=== PATIENT | male | born 1940 | race Caucasian/White ===

== ENCOUNTER 2018-12-20 08:29 | Day surgery (SDC) | payer MEDICARE, OTHER ==
[2018-12-20] MEDS ORDERED: Propofol 200 MG/20 ML SDV ONE (09:25)
[2018-12-20] MEDS ORDERED: fentaNYL 100 MCG/2 ML SDV ONE (09:25)
[2018-12-20] MEDS ORDERED: Dextrose 5%-Lactated Ringers 1,000 ML IV SCH (09:45)
--- NOTE | 2018-12-21 14:50 | OR ---
DATE OF PROCEDURE: 12/20/2018 SURGEON: Sean Galaviz MD PREOPERATIVE DIAGNOSIS: Change in bowel habits. POSTOPERATIVE DIAGNOSES: Change in bowel habits associated with very extensive pandiverticulosis with scattered narrowing and tortuosity of sigmoid colon. OPERATIVE PROCEDURES: Flexible colonoscopy with: 1. Collection of stool for C and S (08918). 2. Random colorectal biopsies to rule out microscopic colitis (63401). ANESTHESIA: IV sedation. INDICATION FOR PROCEDURE: David is a 77-year-old, who is here for evaluation of some change in bowel habits. The patient had diverticulitis about three months ago, treated with antibiotics. He now has a pattern where he wakes up fairly constipated, moves his bowels, and then has frequent loose bowel movements for the remainder of the day. This is not associated with any systemic symptoms and only some [id number] abdominal discomfort. The plan is to proceed with a flexible colonoscopy with biopsies and/or polypectomy as indicated. In the event that we are dealing with some sort of chronic infectious component, we will obtain some stool for C and S, and if no obvious other pathology is seen accounting for the patient's symptoms, we will obtain random colorectal biopsies to rule out a microscopic colitis. Potential risks including bleeding and perforation were discussed, and the patient wishes to proceed. DETAILS OF PROCEDURE: The patient was taken to the operating room and placed in a left lateral decubitus position. IV sedation was administered, after which, the initial digital rectal exam was performed and was unremarkable. Colonoscope was then passed into the rectum with retroflexion revealing uncomplicated hemorrhoidal columns. The scope was eventually passed to the cecum. The patient had pandiverticulosis, but in the sigmoid colon, there was extremely dense diverticulosis. There was no overt diverticulitis throughout per se, although the mucosa in that area was diffusely very minimally reddened and edematous. The sigmoid colon had some areas of narrowing, but, at no point, enough that the scope could not be easily passed through that area of narrowing. Above the sigmoid colon, diverticulosis was persistent, but there was no additional tortuosity or narrowing in the remainder of the colon. Apart from the diverticular disease, there was no blood or bleeding, no polyps or signs of neoplasia, and no areas of colitis. The stool was collected during the course of the procedure and sent for full microbiologic workup. Then, coming back, random colorectal biopsies, beginning at the cecum and ending at the rectum, were made along the length of the colon and rectum and sent for histologic evaluation. Minimal bleeding from the biopsy site was seen, and the procedure then concluded. It is possible that the patient's symptoms may be related to diverticular disease, although that was by no means certain. One might try adding some additional stool softeners to avoid the episodes of constipation in the morning, which might even things out. Otherwise, he will be following up with LANDON Saleh, at [facility] in about 1 to 2 weeks. Sean Galaviz MD /[id number]
== END 2018-12-20 12:48 | disposition home or self-care (01) ==
LOC: JP.SDS 08:29
PROVIDERS: ATTEND Surgery
DX: K57.30 Diverticulosis of large intestine without perforation or abscess without bleeding (principal); K64.9 Unspecified hemorrhoids; K56.699 Other intestinal obstruction unspecified as to partial versus complete obstruction; K63.89 Other specified diseases of intestine; K58.2 Mixed irritable bowel syndrome; K21.9 Gastro-esophageal reflux disease without esophagitis; E04.1 Nontoxic single thyroid nodule; E78.5 Hyperlipidemia, unspecified; J44.9 Chronic obstructive pulmonary disease, unspecified; N40.0 Benign prostatic hyperplasia without lower urinary tract symptoms; Z91.030 Bee allergy status
CPT/HCPCS: 87046; 87493; 87899; 89055; J2704; J3010; J7042